=== PATIENT | female | born 1985 | race Caucasian/White ===

== ENCOUNTER 2018-01-04 13:07 | Outpatient (CLI) | payer OTHER ==
[2018-01-04 16:20] LABS: BHCG - Serum Negative (NEGATIVE); Pregs Control Background? CLEAR/WHITE (CLR/WHITE); Pregs Control Bar Appear? YES (CONTROL BAR)
== END 2018-01-04 13:08 | disposition home or self-care (01) ==
LOC: LABBT 13:07
PROVIDERS: ATTEND Surgery
DX: Z01.818 Encounter for other preprocedural examination (principal); K42.9 Umbilical hernia without obstruction or gangrene
CPT/HCPCS: 84703; 93005; 93010

== ENCOUNTER 2018-01-14 07:24 | Day surgery (SDC) | payer OTHER ==
[2018-01-04 13:57] VITALS: BMI 34.8
[2018-01-14] MEDS ORDERED: Midazolam HCl 2 mg/2 ml Vial ONE ×2 (08:29→09:02)
[2018-01-14] MEDS ORDERED: Bupivacaine/Epinephrine 0.25% 30 ML VIAL ONE (08:46)
[2018-01-14] MEDS ORDERED: Fentanyl 250 MCG/5 ML VIAL ONE (09:02)
[2018-01-14] MEDS ORDERED: Fentanyl 100 MCG/2 ML VIAL ONE ×4 (09:02→10:43)
[2018-01-14] MEDS ORDERED: Morphine 4 MG/ML VIAL ONE (10:54)
[2018-01-14] MEDS ORDERED: HYDROcodone/Acetaminophen 5/325 mg Tablet ONE (11:22)
[2018-01-14] MEDS ORDERED: PROPOFOL 200 MG/20 ML VIAL ONE (12:50)
[2018-01-14] MEDS ORDERED: Lidocaine 1% PF 5 ML VIAL ONE (12:50)
[2018-01-14] MEDS ORDERED: Dexamethasone 20 MG/5 ML VIAL ONE (12:50)
[2018-01-14] MEDS ORDERED: Glycopyrrolate 0.2 MG/ML 5 ML SYRINGE ONE (12:50)
[2018-01-14] MEDS ORDERED: Ondansetron HCl/PF 4 MG/2 ML Vial ONE (12:50)
--- NOTE | 2018-01-14 13:04 | OP ---
DATE OF PROCEDURE: 01/14/2018 PREOPERATIVE DIAGNOSIS: Umbilical hernia. POSTOPERATIVE DIAGNOSIS: Umbilical hernia. PROCEDURE: Umbilical hernia repair with mesh, Ventralex ST small. SURGEON: Gloria. ANESTHESIA: General. ESTIMATED BLOOD LOSS: Minimal. COMPLICATIONS: None. SPECIMEN: None. TECHNIQUE: The patient was taken to the operating room and placed supine on the table. After genera l anesthetic was obtained, the abdomen is prepped and draped in a sterile fashion. Curved incision m nuha below the umbilicus. Cautery was used to dissect down to and score the fascia. The umbilical st alk is amputated exposing umbilical defect. The edges of the defect were freshened. The fat that wa s herniated up through the defect is pushed back into the preperitoneal space. The small Ventralex S T mesh was brought into the sterile field. The onlay was placed in the preperitoneal space. The nicole ls laid out lateral to pull it up against the posterior abdominal wall, permanent braided suture was used to sew the tails of the mesh to the fascia laterally, superiorly, and inferiorly. The tails wer e then cut at the level of the fascia. The fascia was closed loosely over the mesh. The wound is ir rigated. Local anesthetic is applied. Umbilical stalk is tacked back down using 3-0 Vicryl. Skin w as closed in running 3-0 Vicryl, 4-0 Monocryl, and Dermabond. The patient was en route to recovery i n stable condition. All instrument counts, needle counts, lap counts were correct.
== END 2018-01-14 12:50 | disposition home or self-care (01) ==
LOC: SDC 07:24
PROVIDERS: ATTEND Surgery
PROC: 0WUF0JZ Supplement Abdominal Wall with Synthetic Substitute, Open Approach (ICD-10-PCS; principal; 2018-01-14)
DX: K42.9 Umbilical hernia without obstruction or gangrene (principal); Z88.0 Allergy status to penicillin
CPT/HCPCS: 96374; J1100; J2001; J2250; J2270; J2405; J2704; J3010